=== PATIENT | male | born 1965 | race Caucasian/White ===

== ENCOUNTER 2018-02-14 08:15 | Day surgery (SDC) | payer BC ==
[~2018-02-14] VITALS: Ht 180.3 cm; Wt 87.8 kg
[~2018-02-14 08:15] MED LIST: ZOCOR 80MG80 MG PO; ZYLOPRIM 100MG100 MG PO
[2018-02-14] MEDS ORDERED: PRINZIDE 25 MG-1 TAB PO (08:34)
[2018-02-14] MEDS ORDERED: NORVASC 5MG5 MG/TAB PO (08:34)
[2018-02-14 08:35] VITALS: BP 135/92; PULSE 68; TEMP 98.3
[2018-02-14 10:15] VITALS: BP 123/94; PULSE 66; TEMP 97.5
[2018-02-14 10:30] VITALS: BP 135/92; PULSE 57
[2018-02-14 10:45] VITALS: BP 128/59; PULSE 57
== END 2018-02-14 10:50 | disposition home or self-care (01) ==
LOC: SDCO 08:15
DX: Z12.11 Encounter for screening for malignant neoplasm of colon (principal); D12.5 Benign neoplasm of sigmoid colon; D12.6 Benign neoplasm of colon, unspecified; K57.30 Diverticulosis of large intestine without perforation or abscess without bleeding; K64.1 Second degree hemorrhoids; K92.1 Melena
CPT/HCPCS: OP; J2250; J3010; J7030

== ENCOUNTER 2021-07-21 07:40 | Day surgery (SDC) | payer BC ==
[~2021-07-21] VITALS: Ht 180.3 cm; Wt 87.3 kg
[~2021-07-21 07:40] MED LIST changes: +NORVASC 5MG5 MG/TAB PO; +PRINZIDE 25 MG-1 TAB PO
--- NOTE | 2021-07-21 08:00 | NUR ---
56 year old patient admitted to by #8 via ambulation, using a steady gait and no assistive devices. is present. Medications and HX reviewed. Consent was reveiwed. Patient verbalized understanding of procedure. First and last name + verified with patient. IV started in R hand on first attempt with #20. LR is infusing without difficulty. Warm blanket provided. Non-slip socks are on. Call parikh is within reach.
[2021-07-21 08:36] VITALS: BP 116/77; PULSE 71; TEMP 97.7
[2021-07-21 09:40] VITALS: BP 112/82; PULSE 64
--- NOTE | 2021-07-21 09:40 | NUR ---
Patient returns to [place] [facility] ambulatory and is alert and oriented x3. Temp 97.3. Given orange juice and eating toast. Denies pain or nausea.
[2021-07-21 09:55] VITALS: BP 119/91; PULSE 64
--- NOTE | 2021-07-21 09:55 | NUR ---
Resting and room air sats 98%. Talking with family.
[2021-07-21 10:10] VITALS: BP 120/84; PULSE 64
--- NOTE | 2021-07-21 10:10 | NUR ---
Resting and denies nausea or pain. IV fluids infusing.
[2021-07-21 10:25] VITALS: BP 126/82; PULSE 61
--- NOTE | 2021-07-21 10:25 | NUR ---
Dr. Leal in the room and talks with the patient. All questions answered.
--- NOTE | 2021-07-21 10:29 | NUR ---
Patient dismissed to home driven by family member. Taken to the front door per wheelchair and assisted into vehicle with dismissal instructions in hand.
== END 2021-07-21 10:29 | disposition home or self-care (01) ==
LOC: SDCO 07:40
DX: Z12.11 Encounter for screening for malignant neoplasm of colon (principal); K62.1 Rectal polyp; K57.30 Diverticulosis of large intestine without perforation or abscess without bleeding; I10 Essential (primary) hypertension; J44.9 Chronic obstructive pulmonary disease, unspecified; F17.210 Nicotine dependence, cigarettes, uncomplicated; Z86.010 Personal history of colon polyps; Z79.899 Other long term (current) drug therapy
CPT/HCPCS: J2704; J7030

== ENCOUNTER 2024-04-02 12:35 | Emergency (ER) | payer SELFPAY ==
[~2024-04-02] VITALS: Ht 180.3 cm; Wt 87.7 kg
[2024-04-02 12:43] VITALS: TEMP 97.7
[2024-04-02] MEDS ORDERED: CEPHALEXIN500 M1 PO (13:21)
[2024-04-02] MEDS ORDERED: Cephalexin 500 MG CAP PO ONE (13:30)
[2024-04-02 14:03] VITALS: BP 137/81; PULSE 75
== END 2024-04-02 14:04 | disposition home or self-care (01) ==
LOC: COL.ER 12:35
DX: S61.412A Laceration without foreign body of left hand, initial encounter (principal); F17.210 Nicotine dependence, cigarettes, uncomplicated; W20.8XXA Other cause of strike by thrown, projected or falling object, initial encounter